=== PATIENT | female | born 2000 | race Hispanic/Latino ===

== ENCOUNTER 2019-09-12 21:31 | Emergency (ER) | payer OTHER ==
[~2019-09-12] VITALS: Ht 152.4 cm; Wt 50.3 kg
--- OUTSIDE RECORDS SUMMARY | 2019-09-12 21:36 | XMS REPORT ---
Author Author [facility] t Organization [facility] Address [address] [place] [address] Phone Unavailable Care Team Providers Care Kaiwhakahaere Name Role Phone Unavailable Unavailable Payers Payer Name Policy Type Policy Number Effective Date Expiration Date S ource Problems This patient has no known problems. Allergies, Adverse Reactions, Alerts Allergy Name Allergy Type Status Severity Reaction(s) Onset Date Inacti ve Date Treating Clinician Comments Source Penicillins DA Active SV 2019-09-01 00:00:00 [facility] codeine DA Active SV 2019-09-01 00:00:00 [facility] Penicillins DA Active SV 2014-11-21 00:00:00 [facility] codeine DA Active SV 2014-11-21 00:00:00 [facility] Medications This patient has no known medications. Procedures This patient has no known procedures. Results Test Description Test Time Test Comments Results Result Comments Source - DUP AB/PEL/SC/LTD 2019-09-09 23:44:00 Name: TIANA ALMENDAREZ [facility] : 2000 Age/S: 19 / F [address] [place] [address] Unit #: [id number] Loc: FAUSTINO Perez [address] Phys: Britton Canada PREMIUM REPRESENTATIVE Acct: [id number] Dis Date: Status: REG ER PHONE #: [phone] Exam Date: 09/09/2019 2330 FAX #: [phone] Reason: see US PREG 1st TRIMTR EXAMS: CPT CODE: [id number] DUP AB/PEL/SC/LTD 04623 EXAM: US, US PREG 1ST TRIMTR: 09/09/2019, 2256 hours EXAM: US, US PREG UT TRANSVAGINAL: 09/09/2019, 2256 hours EXAM: US, DUP AB/PEL/SCLTD: 09/09/2019, 2256 hours History: Vaginal bleeding. Vomiting. Nausea. Abdominal pain. 10 weeks . TECHNIQUE: Transabdominal and transvaginal sonographic evaluation is performed using grayscale, color flow and Doppler imaging as appropriate COMPARISON: 09/01/2019 Findings: Transabdominal ultrasound: Anteverted uterus. Uterus measures 8.1 x 6.0 x 8.3 cm. An intrauterine gestational sac is seen containing pole and yolk sac. Sonographic gestational age is 10 weeks 2 days by CRL measurement of 3.41 cm heart rate is 1 62 bpm. Right ovary: 2.4 x 1.8 x 2.2 cm Left ovary: 3.1 x 1.2 x 1.8 cm Normal flow seen to the both ovaries. No adnexal mass noted. Transvaginal pelvic ultrasound: Uterus is anteverted. Uterus measures 8.7 x 7.0 x 7.9 cm. An intrauterine gestational sac is noted containing pole and yolk sac. Sonographic gestational age is 10 weeks 2 days by CRL measurement of 3.38 cm heart rate is 1 67 bpm. A small subchorionic bleed is seen measuring 1.5 x 0.9 x 0.3 cm. Right ovary: 2.5 x 1.8 x 2.5 cm Left ovary: 2.1 x 1.1 x 2.4 cm A 1.7 x 1.4 x 1.9 cm heterogenous area in the right ovary, probably corpus luteum cyst. Follicle seen in the left ovary. Normal flow seen to the both ovaries. Trace free fluid seen in the pelvis. If indicated, follow-up ultrasound can be obtained for complete PAGE 1 Signed Report (CONTINUED) Name: TIANA ALMENDAREZ : 2000 Age/S: 19 / F [address] [place] [address] Unit #: [id number] Loc: FAUSTINO Perez [address] Phys: Britton Canada PREMIUM REPRESENTATIVE Acct: [id number] Dis Date: Status: REG ER PHONE #: [phone] Exam Date: 09/09/20192329 FAX #: [phone] Reason: see US PREG 1st TRIMTR EXAMS: CPT CODE: [id number] [facility] AB/PEL/SC/LTD 88137 < Continued> assessment. IMPRESSION: 1. Single viable intrauterine gestation with sonographic estimated gestational age of 10 weeks 2 days. 2. Subchorionic bleed. 3. A heterogenous lesion in the right ovary, probably corpus luteum cyst. 4. Trace free fluid in the pelvis. SL:[JSYED-H] at 2344 Reported and signed by: Payam Allred M.D. CC: Britton Canada NP Technologist: Dori Carson RDMS(AB)(OB) Trnscb Date/Time: 09/09/2019 (2344) [email or web address] Orig Print D/T: S: 09/09/2019 (6359) Probe: PAGE 2 Signed Report - US PREG 1ST TRIMTR 2019-09-09 23:44:00 Name: TIANA ALMENDAREZ : 2000 Age/S: 19 / F [address] [place] [address] Unit #: [id number] Loc: FAUSTINO Perez [address] Phys: Britton Canada PREMIUM REPRESENTATIVE Acct: [id number] Dis Date: Status: REG ER PHONE #: [phone] Exam Date: 09/09/20192329 FAX #: [phone] Reason: 10wk ges, veg bleeding EXAMS: CPT CODE: [id number] US PREG 1ST TRIMTR 32918 EXAM: US, US PREG 1ST TRIMTR: 09/09/2019, 2256 hours EXAM: US, US PREG UT TRANSVAGINAL: 09/09/2019, 2256 hours EXAM: US, DUP AB/PEL/SCLTD: 09/09/2019, 2256 hours History: Vaginal bleeding. Vomiting. Nausea. Abdominal pain. 10 weeks . TECHNIQUE: Transabdominal and transvaginal sonographic evaluation is performed using grayscale, color flow and Doppler imaging as appropriate COMPARISON: 09/01/2019 Findings: Transabdominal ultrasound: Anteverted uterus. Uterus measures 8.1 x 6.0 x 8.3 cm. An intrauterine gestational sac is seen containing pole and yolk sac. Sonographic gestational age is 10 weeks 2 days by CRL measurement of 3.41 cm heart rate is 1 62 bpm. Right ovary: 2.4 x 1.8 x 2.2 cm Left ovary: 3.1 x 1.2 x 1.8 cm Normal flow seen to the both ovaries. No adnexal mass noted. Transvaginal pelvic ultrasound: Uterus is anteverted. Uterus measures 8.7 x 7.0 x 7.9 cm. An intrauterine gestational sac is noted containing pole and yolk sac. Sonographic gestational age is 10 weeks 2 days by CRL measurement of 3.38 cm heart rate is 1 67 bpm. A small subchorionic bleed is seen measuring 1.5 x 0.9 x 0.3 cm. Right ovary: 2.5 x 1.8 x 2.5 cm Left ovary: 2.1 x 1.1 x 2.4 cm A 1.7 x 1.4 x 1.9 cm heterogenous area in the right ovary, probably corpus luteum cyst. Follicle seen in the left ovary. Normal flow seen to the both ovaries. Trace free fluid seen in the pelvis. If indicated, follow-up ultrasound can be obtained for complete PAGE 1 Signed Report (CONTINUED) Name: TIANA ALMENDAREZ [facility] : 2000 Age/S: 19 / F [address] [place] [address] Unit #: [id number] Loc: FAUSTINO Perez [address] Phys: Britton Canada NP Acct: [id number] Dis Date: Status: REG ER PHONE #: [phone] Exam Date: 09/09/20192329 FAX #: [phone] Rocio son: 10wk ges, veg bleeding EXAMS: CPT CODE: [id number] US PREG 1ST TRIMTR 23451 <Continued> assessment. IMPRESSION: 1. Single viable intrauterine gestation with sonographic estimated gestational age of 10 weeks 2 days. 2. Subchorionic bleed. 3. A heterogenous lesion in the right ovary, probably corpus luteum cyst. 4. Trace free fluid in the pelvis. SL:[JSYED-H] at 2344 Reported and signed by: Payam Allred M.D. CC: Britton Canada NP Technologist: Dori Carson RDMS(AB)(OB) Trnorb Date/Time: 09/09/2019 (234) [email or web address] Orig Print D/T: S: 09/09/2019 (7738) Probe: PAGE 2 Signed Report - US PREG UT TRANSVAGINAL 2019-09-09 23:44:00 Name: TIANA ALMENDAREZ [facility] : 2000 Age/S: 19 / F [address] [place] [address] Unit #: [id number] Loc: [place] [address] Phys: Britton Canada NP Acct: [id number] Dis Date: Status: [facility] ER PHONE #: [phone] Exam Date: 09/09/20192329 FAX #: [phone] Reason: see US PREG 1st TRIMTR EXAMS: CPT CODE: [id number] US PREG UT TRANSVAGINAL 45432 EXAM: US, US PREG 1ST TRIMTR: 09/09/2019, 2256 hours EXAM: US, US PREG UT TRANSVAGINAL: 09/09/2019, 2256 hours EXAM: US, DUP AB/PEL/SCLTD: 09/09/2019, 2256 hours History: Vaginal bleeding. Vomiting. Nausea. Abdominal pain. 10 weeks . TECHNIQUE: Transabdominal and transvaginal sonographic evaluation is performed using grayscale, color flow and Doppler imaging as appropriate COMPARISON: 09/01/2019 Findings: Transabdominal ultrasound: Anteverted uterus. Uterus measures 8.1 x 6.0 x 8.3 cm. An intrauterine gestational sac is seen containing pole and yolk sac. Sonographic gestational age is 10 weeks 2 days by CRL measurement of 3.41 cm heart rate is 1 62 bpm. Right ovary: 2.4 x 1.8 x 2.2 cm Left ovary: 3.1 x 1.2 x 1.8 cm Normal flow seen to the both ovaries. No adnexal mass noted. Transvaginal pelvic ultrasound: Uterus is anteverted. Uterus measures 8.7 x 7.0 x 7.9 cm. An intrauterine gestational sac is noted containing pole and yolk sac. Sonographic gestational age is 10 weeks 2 days by CRL measurement of 3.38 cm heart rate is 1 67 bpm. A small subchorionic bleed is seen measuring 1.5 x 0.9 x 0.3 cm. Right ovary: 2.5 x 1.8 x 2.5 cm Left ovary: 2.1 x 1.1 x 2.4 cm A 1.7 x 1.4 x 1.9 cm heterogenous area in the right ovary, probably corpus luteum cyst. Follicle seen in the left ovary. Normal flow seen to the both ovaries. Trace free fluid seen in the pelvis. If indicated, follow-up ultrasound can be obtained for complete PAGE 1 Signed Report (CONTINUED) Name: TIANA ALMENDAREZ [facility] : 2000 Age/S: 19 / F [address] [place] [address] Unit #: [id number] Loc: [place] [address] Phys: Britton Canada PREMIUM REPRESENTATIVE Acct: [id number] Dis Date: Status: REG ER PHONE #: [phone] Exam Date: 09/09/2019 2330 FAX #: [phone] Mccall son: see US PREG 1st TRIMTR EXAMS: CPT CODE: [id number] US PREG UT TRANSVAGINAL 15199 <Continued> assessment. IMPRESSION: 1. Single viable intrauterine gestation with sonographic estimated gestational age of 10 weeks 2 days. 2. Subchorionic bleed. 3. A heterogenous lesion in the right ovary, probably corpus luteum cyst. 4. Trace free fluid in the pelvis. SL:[JSYED-H] at 2344 Reported and signed by: Payam Allred M.D. CC: Britton Canada NP Technologist: oDri Carson RDMS()(OB) Trnscb Date/Time: 09/09/2019 (2344) [email or web address] Orig Print D/T: S: 09/09/2019 (7303) Probe: [id number] PAGE 2 Signed Report BASIC METABOLIC PANEL 2019-09-09 23:17:00 Test Item SODIUM (test code = NA) 136 mEq/L 134-147 N POTASSIUM (test code = K) 3.4 mEq/L 3.4-5.0 N CHLORIDE (test code = CL) 106 mEq/L 100-108 N CARBON DIOXIDE (test code = CO2) 20 mEq/L 21-33 L ANION GAP (test code = GAP) 13 0-20 N GLUCOSE (test code = GLU) 105 mg/dL 70-110 N BLOOD UREA NITROGEN (test code = BUN) 6 mg/dL 7-18 L GLOMERULAR FILTRATION RATE (test code = GFR) 155.7 110-120 H Units of measure = ml/min/1.73 m2 CREATININE (test code = CREAT) 0.5 mg/dL 0.6-1.3 L CALCIUM (test code = CA) 8.8 mg/dL 8.0-10.5 N Is patient ? YHOW MANY WEEKS? 10 WEEKSHEPATIC FUNCTION [id number] 23:17:00* Test Item Value Reference Range Interpretation Comments TOTAL PROTEIN (test code = PROT) 7.2 g/dL 6.4-8.2 N ALBUMIN (test code = ALB) 3.40 g/dL 3.4-5.0 N BILIRUBIN TOTAL (test code = BILT) 0.2 MG/DL <1.5 N BILIRUBIN DIRECT (test code = BILD) < 0.10 MG/DL 0.0-0.30 N BILIRUBIN INDIRECT (test code = BILIND) 0.10 MG/DL SGOT/AST (test code = AST) 14 IUnit/L 15-37 L SGPT/ALT (test code = ALT) 20 IUnit/L 15-65 N ALKALINE PHOSPHATASE TOTAL (test code = ALKP) 46 IUnit/L 20-125 N Is patient ? YHOW MANY WEEKS? 10 [id number] 23:17:00* Test Item Value Reference Range Interpretation Comments LIPASE (test code = LIP) 107 IUnit/L 73-393 N Is patient ? YHOW MANY WEEKS? 10 WEEKSHCG [id number] 23:17:00* Test Item Value Reference Range Interpretation Comments HCG SERUM (test code = HCG) 83593 0 - 6 NOT > 6 SUGGESTIVE OF EARLY RISES TWO FOLD EVERY 2 DAYS; SUGGEST RE CONFIRMING AFTER 2 DAYS. 150,000-200,[address] TRIMESTER 10,000 - 50,000 2ND & 3RD TRIMESTERResults in marjorie-International Units/mL Is patient ? YHOW MANY WEEKS? 10 BASIC METABOLIC [id number] 23:04:00* Test Item Value Reference Range Interpretation Comments SODIUM (test code = NA) 136 mEq/L 134-147 N POTASSIUM (test code = K) 3.4 mEq/L 3.4-5.0 N CHLORIDE (test code = CL) 106 mEq/L 100-108 N CARBON DIOXIDE (test code = CO2) 20 mEq/L 21-33 L ANION GAP (test code = GAP) 13 0-20 N GLUCOSE (test code = GLU) 105 mg/dL 70-110 N BLOOD UREA NITROGEN (test code = BUN) 6 mg/dL 7-18 L GLOMERULAR FILTRATION RATE (test code = GFR) 110-120 CREATININE (test code = CREAT) mg/dL 0.6-1.3 CALCIUM (test code = CA) 8.8 mg/dL 8.0-10.5 N Is patient ? YHOW MANY WEEKS? 10 HEPATIC FUNCTION [id number] 23:04:00* Test Item Value Reference Range Interpretation Comments TOTAL PROTEIN (test code = PROT) g/dL 6.4-8.2 ALBUMIN (test code = ALB) g/dL 3.4-5.0 BILIRUBIN TOTAL (test code = BILT) MG/DL <1.5 BILIRUBIN DIRECT (test code = BILD) MG/DL 0.0-0.30 SGOT/AST (test code = AST) IUnit/L 15-37 SGPT/ALT (test code = ALT) IUnit/L 15-65 ALKALINE PHOSPHATASE TOTAL (test code = ALKP) IUnit/L 20-125 Is patient ? YHOW MANY WEEKS? 10 [id number] 23:04:00* Test Item Value Reference Range Interpretation Comments LIPASE (test code = LIP) 107 IUnit/L 73-393 N Is patient ? YHOW MANY WEEKS? 10 WEEKSHCG [id number] 23:04:00* Test Item Value Reference Range Interpretation Comments HCG SERUM (test code = HCG) Is patient ? YHOW MANY WEEKS? 10 WEEKSCBC W/AUTO [id number] 22:45:00 * Test Item Value Reference Range Interpretation Comments WHITE BLOOD CELL (test code = WBC) 8.92 x10 3/uL 4.5-11.0 N RED BLOOD CELL (test code = RBC) 4.25 x10 6/uL 3.54-5.02 N HEMOGLOBIN (test code = HGB) 11.6 g/dL 11.0-15.0 N HEMATOCRIT (test code = HCT) 34.7 % 33.0-45.0 N MEAN CELL VOLUME (test code = MCV) 81.6 fL 81.0-99.0 N MEAN CELL HGB (test code = MCH) 27.3 pg 27.0-33.0 N MEAN CELL HGB CONCETRATION (test code = MCHC) 33.4 g/dL 33.0-37. 0 N RED CELL DISTRIBUTION WIDTH CV (test code = RDW) 13.1 % 11.5- 14.5 N RED CELL DISTRIBUTION WIDTH SD (test code = RDW-SD) 38.7 fL 37 .0-54.0 N PLATELET COUNT (test code = PLT) 179 x10 3/uL 150-400 N MEAN PLATELET VOLUME (test code = MPV) 12.3 fL 7.0-9.0 H NEUTROPHIL % (test code = NT%) 67.1 % 56.0-77.0 N IMMATURE GRANULOCYTE % (test code = IG%) 0.3 % 0.0-2.0 N LYMPHOCYTE % (test code = LY%) 21.9 % 14.0-32.0 N MONOCYTE % (test code = MO%) 8.0 % 4.8-9.0 N EOSINOPHIL % (test code = EO%) 1.8 % 0.3-3.7 N BASOPHIL % (test code = BA%) 0.9 % 0.0-2.0 N NUCLEATED RBC % (test code = NRBC%) 0.0 % 0-0 N NEUTROPHIL # (test code = NT#) 5.99 x10 3/uL 2.0-7.6 N IMMATURE GRANULOCYTE # (test code = IG#) 0.03 x10 3/uL 0.00-0.03 N LYMPHOCYTE # (test code = LY#) 1.95 x10 3/uL 1.0-3.8 N MONOCYTE # (test code = MO#) 0.71 x10 3/uL 0.1-0.8 N EOSINOPHIL # (test code = EO#) 0.16 x10 3/uL 0.0-0.2 N BASOPHIL # (test code = BA#) 0.08 x10 3/uL 0.0-0.2 N NUCLEATED RBC # (test code = NRBC#) 0.00 x10 3/uL 0.0-0.1 N MANUAL DIFF REQUIRED (test code = MDIFF) NO CF MUTATION/[id number] 11:09:00* Test Item Value Reference Range Interpretation Comments CF MUTATION/POLYMORPHISMS (test code = CFMUTPOLY) Comment: () RESULTS: Negative for the 97 mutations analyzedINTERPRETATION:This individual is negative for the mutations analyzed.This negative result may need further interpretationdepending on the clinical indication. This result reducesbut does not eliminate the risk to be a CF carrier.COMMENTS:The detection rate varies with ethnicity and is listedbelow. The presence of an undetected mutation in the CFgene cannot be ruled out. In the absence of family history,the remaining risk that a person with a negative resultcould have at least one CF mutation is listed in the table.If there is a family history of CF, these risk figures donot apply. As detailed information regarding thisindividual's family history would permit a more accurateassessment of this individual's risk to be a carrier ofcystic fibrosis, please contact [employer] [phone] for a revised report.Mutation Detection Detection rates are based on mutationRates among Ethnic frequencies in patients affected withGroups cystic fibrosis. Among individuals with an atypical or mild presentation (e.g. congenital absence of the vas deferens, pancreatitis) detection rates may vary from those provided here. Carrier risk reduction when no family DetectionEthnicity history Rate ReferencesAfrican to 81% [employer]ass[employer] in Med 3:168, 2000AmericanAshkenazi 05/18 to 97% Am J Hum Kassi 51:951,1993JewishAsian - Not Insufficient data ProvidedCaucasian 05/17 to 93% K[facility]i in Med 3:168,2000; [employer] in [employer] 4:90, 2001Hispanic to 78% [facility]i in Med 3:168,2000; www.[facility].[place].gov/pcfh/gdb /html/PDE/CFStudy.htmJewish, - Varies by Kassi Testing 5:47, 2000non-Ashkenndi country Kassi Testing, 1:351996 of originOther orMixed - Not Detection rate notEthnicity Provided determined and varies with ethnicityThis interpretation is based on the clinical and familyrelationship information provided and the currentunderstanding of the molecular genetics of this condition.MUTATIONS ANALYZED:knfikT708 1467zkm1 CFTRdele2,3 R334W*ylsopR143* 3659delC* Z1278E R126XddbzjO837* 8193xma6 E60X R347P*1078delT 3791delC E92X W780N2625nntYO 3849+10kbC to T* G178R R553X*1677delTA 3876delA G330X R560T*1717-1G to A* 3905insT G480C V689P7724-3O to A 394delTT G542X* A46P5480+1G to A* 4016insT G551D* Y245W6551+5G to T 405+1G to A G85E* W1901U5305quk11 405+3A to C K710X W9271N1630hhmW 406- 1G to A L206W T2477S6400nij1 to A 444delA I4209T E555N3362ncx61tla0 457TAT to G H0107W* W968W1186gdjJ 574delA P574H S549R T to K2038keuG 621+1G to T* X4385K Y905V1746dzxUI to G 663delT Q359K/T360K W500P9436yyiZ* 711+1G to T* Q493X W9667Y8847uoxZ 711+5G to A Q552X K2407B7299trcP 712-1G to T Q890X D8670R*2789+5G to A* 935delA I9236E E0294N C to S6645gbdP 936delTA E7616O S1299A C to G3120+1G to A* A455E* J4394L* V569T9656I to A A559T B030I4734eifG C524X R117HACOG/ACMG recommendedMETHODS/LIMITATIONS:DNA is isolated from the sample and tested for the 97 CFmutations on the [place] [employer] Platform ([employer]).Regions of the CFTR gene are amplified enzymatically andsubjected to a solution-phase multiplex allele-specificprimer extension with subsequent hybridization to a beadarray and fluorescence detection. Polymorphisms F508C,I506V and I507V are included in this panel to rule outfalse positive mgudbQ745 homozygotes. Reflex testing of5T is included in the panel for R117H interpretation.False positive or negative results may occur for reasonsthat include genetic variants, blood transfusions, bonemarrow transplantation, erroneous representation offamily relationships or contamination of a samplewith maternal cells. The assay provides informationintended to be used for carrier screening in adults ofreproductive age, as an aid in screening, andas a confirmatory test for another medicallyestablished diagnosis in newborns and children. Thetest is not intended for use in diagnostictesting, pre-implantation screening, or for anystand-alone diagnostic purposes without confirmationby another medically established diagnostic productor procedure.Results Released By: Anjali Porter, Ph.D., DirectorReport Released By: Anjali Porter, Ph.D., DirectorPerformed At: [facility] [id number] [place], [place] [id number] Booth MD Ph:[phone] BASIC METABOLIC [id number] 09:19:00* Test Item Value Reference Range Interpretation Comments SODIUM (test code = NA) 137 mEq/L 134-147 N POTASSIUM (test code = K) 3.5 mEq/L 3.4-5.0 N CHLORIDE (test code = CL) 105 mEq/L 100-108 N CARBON DIOXIDE (test code = CO2) 25 mEq/L 21-33 N ANION GAP (test code = GAP) 11 0-20 N GLUCOSE (test code = GLU) 83 mg/dL 70-110 N BLOOD UREA NITROGEN (test code = BUN) 7 mg/dL 7-18 N GLOMERULAR FILTRATION RATE (test code = GFR) 155.7 110-120 H Units of measure = ml/min/1.73 m2 CREATININE (test code = CREAT) 0.5 mg/dL 0.6-1.3 L CALCIUM (test code = CA) 8.6 mg/dL 8.0-10.5 N Is patient ? YHOW MANY WEEKS? 8 [id number] 09:19:00* Test Item Value Reference Range Interpretation Comments LIPASE (test code = LIP) 80 IUnit/L 73-393 N Is patient ? YHOW MANY WEEKS? 8 WEEKSHCG [id number] 09:19:00* Test Item Value Reference Range Interpretation Comments HCG SERUM (test code = HCG) 49863 0 - 6 NOT > 6 SUGGESTIVE OF EARLY RISES TWO FOLD EVERY 2 DAYS; SUGGEST RE CONFIRMING AFTER 2 DAYS. 150,000-200,[address] TRIMESTER 10,000 - 50,000 2ND & 3RD TRIMESTERResults in marjorie-International Units/mL Is patient ? YHOW MANY WEEKS? 8 WEEKSBASIC METABOLIC [id number] 09:08:00* Test Item Value Reference Range Interpretation Comments SODIUM (test code = NA) 137 mEq/L 134-147 N POTASSIUM (test code = K) 3.5 mEq/L 3.4-5.0 N CHLORIDE (test code = CL) 105 mEq/L 100-108 N CARBON DIOXIDE (test code = CO2) 25 mEq/L 21-33 N ANION GAP (test code = GAP) 11 0-20 N GLUCOSE (test code = GLU) 83 mg/dL 70-110 N BLOOD UREA NITROGEN (test code = BUN) 7 mg/dL 7-18 N GLOMERULAR FILTRATION RATE (test code = GFR) 110-120 CREATININE (test code = CREAT) mg/dL 0.6-1.3 CALCIUM (test code = CA) 8.6 mg/dL 8.0-10.5 N Is patient ? YHOW MANY WEEKS? 8 [id number] 09:08:00* Test Item Value Reference Range Interpretation Comments LIPASE (test code = LIP) 80 IUnit/L 73-393 N Is patient ? YHOW MANY WEEKS? 8 WEEKSHCG [id number] 09:08:00* Test Item Value Reference Range Interpretation Comments HCG SERUM (test code = HCG) Is patient ? YHOW MANY WEEKS? 8 WEEKS- DUP AB/PEL/SC/[id number] 09:07:00 Name: TIANA ALMENDAREZ [facility] : 2000 Age/S: 19 / F [address] [place] [address] Blvd Unit #: [id number] Loc: [place] [address] Phys: Zain Bass MD Acct: [id number] Dis Date: Status: REG ER PHONE #: [phone] Exam Date: 09/01/2019 09 FAX #: [phone] Reason: see US PREG 1st TRIMTR EXAMS: CPT CODE: [id number] DUP AB/PEL/SC/LTD 03137 - US PREG 1ST TRIMTR, - US PREG UT TRANSVAGINAL, - DUP AB/PEL/SC/LTD: 09/01/2019 8:19 AM CLINICAL HISTORY: Vaginal bleeding with .. STUDY: Obstetric ultrasound performed using grayscale, color Doppler, and spectral Doppler technique. Transabdominal and transvaginal imaging was performed. Transvaginal imaging was performed in order to better evaluate the endometrium and adnexal structures. COMPARISON: None. FINDINGS: Uterus measures 9.7 x 5.2 x 6.2 cm. Martinez live intrauterine with cardiac activity detected at a rate of 165-168 bpm. pole crown-rump length measures 2.2 cm, corresponding with an estimated gestational age of 8 weeks, 6 days. Right ovary measures 2.7 x 1.7 x 2.3 cm. Probable corpus luteum cyst. Left ovary measures 2.7 x 1.6 x 1.8 cm. Doppler flow to both ovaries is normal. No free pelvic fluid. IMPRESSION: Martinez live intrauterine with estimated gestational age of 8 weeks, 6 days. at 0907 Reported and signed by: Abdoulaye Daniels M.D. CC: Zain Bass MD Technologist: Valerie Miller RDMS(AB)(OB) Trnscb Date/Time: 09/01/2019 (906) [id number].KM28 Orig Print D/T: S: 09/01/2019 (909) Probe: PAGE 1 Signed Report - US PREG UT [id number] 09:07:00 Name: TIANA ALMENDAREZ [facility] : 2000 Age/S: 19 / F [address] [place], [place] [address]vd Unit #: [id number] Loc: [place] [address] Phys: Zain Bass MD Acct: [id number] Dis Date: Status: REG ER PHONE #: [phone] Exam Date: 09/01/2019899 FAX #: [phone] Reason: see US PREG 1st TRIMTR EXAMS: CPT CODE: [id number] US PREG UT TRANSVAGINAL 12098 - US PREG 1ST TRIMTR, - US PREG UT TRANSVAGINAL, - DUP AB/PEL/SC/LTD: 09/01/2019 8:19 AM CLINICAL HISTORY: Vaginal bleeding with .. STUDY: Obstetric ultrasound performed using grayscale, color Doppler, and spectral Doppler technique. Transabdominal and transvaginal imaging was performed. Transvaginal imaging was performed in order to better evaluate the endometrium and adnexal structures. COMPARISON: None. FINDINGS: Uterus measures 9.7 x 5.2 x 6.2 cm. Martinez live intrauterine with cardiac activity detected at a rate of 165-168 bpm. pole crown-rump length measures 2.2 cm, corresponding with an estimated gestational age of 8 weeks, 6 days. Right ovary measures 2.7 x 1.7 x 2.3 cm. Probable corpus luteum cyst. Left ovary measures 2.7 x 1.6 x 1.8 cm. Doppler flow to both ovaries is normal. No free pelvic fluid. IMPRESSION: Martinez live intrauterine with estimated gestational age of 8 weeks, 6 days. at 0907 Reported and signed by: Abdoulaye Daniels M.D. CC: Zain ann MD Technologist: JOSE D Chapa S(AB)(OB) Trnscb Date/Time: 09/01/2019 (906) EfraKM 28 Orig Print D/T: S: 09/01/2019 (909) Probe: [id number] X3 PAGE 1 Signed Report - US PREG 1ST [id number] 09:07:00 Name: TIANA ALMENDAREZ [facility] : 2000 Age/S: 19 / F [address] [place] [address] Unit #: [id number] Loc: [place] [address] Phys: Zain Bass MD Acct: [id number] Dis Date: Status: REG ER PHONE #: [phone] Exam Date: 09/01/2019899 FAX #: [phone] Reason: Pelvic Pain EXAMS: CPT CODE: [id number] US PREG 1ST TRIMTR 50532 - US PREG 1ST TRIMTR, - US PREG UT TRANSVAGINAL, - DUP AB/PEL/SC/LTD: 09/01/2019 8:19 AM CLINICAL HISTORY: Vaginal bleeding with .. STUDY: Obstetric ultrasound performed using grayscale, color Doppler, and spectral Doppler technique. Transabdominal and transvaginal imaging was performed. Transvaginal imaging was performed in order to better evaluate the endometrium and adnexal structures. COMPARISON: None. FINDINGS: Uterus measures 9.7 x 5.2 x 6.2 cm. Martinez live intrauterine with cardiac activity detected at a rate of 165-168 bpm. pole crown-rump length measures 2.2 cm, corresponding with an estimated gestational age of 8 weeks, 6 days. Right ovary measures 2.7 x 1.7 x 2.3 cm. Probable corpus luteum cyst. Left ovary measures 2.7 x 1.6 x 1.8 cm. Doppler flow to both ovaries is normal. No free pelvic fluid. IMPRESSION: Martinez live intrauterine with estimated gestational age of 8 weeks, 6 days. at 0907 Reported and signed by: Abdoulaye Daniels M.D. CC: Zain ann MD Technologist: JOSE D Chapa S(AB)(OB) Trnscb Date/Time: 09/01/2019 (09) [email or web address] 28 Orig Print D/T: S: 09/01/2019 (0913) Probe: PAGE 1 Signed Report CBC W/AUTO [id number] 09:01:00* Test Item Value Reference Range Interpretation Comments WHITE BLOOD CELL (test code = WBC) 7.74 x10 3/uL 4.5-11.0 N RED BLOOD CELL (test code = RBC) 4.47 x10 6/uL 3.54-5.02 N HEMOGLOBIN (test code = HGB) 12.3 g/dL 11.0-15.0 N HEMATOCRIT (test code = HCT) 37.0 % 33.0-45.0 N MEAN CELL VOLUME (test code = MCV) 82.8 fL 81.0-99.0 N MEAN CELL HGB (test code = MCH) 27.5 pg 27.0-33.0 N MEAN CELL HGB CONCETRATION (test code = MCHC) 33.2 g/dL 33.0-37. 0 N RED CELL DISTRIBUTION WIDTH CV (test code = RDW) 13.2 % 11.5- 14.5 N RED CELL DISTRIBUTION WIDTH SD (test code = RDW-SD) 39.8 fL 37 .0-54.0 N PLATELET COUNT (test code = PLT) 174 x10 3/uL 150-400 N MEAN PLATELET VOLUME (test code = MPV) 11.9 fL 7.0-9.0 H NEUTROPHIL % (test code = NT%) 59.9 % 56.0-77.0 N IMMATURE GRANULOCYTE % (test code = IG%) 0.4 % 0.0-2.0 N LYMPHOCYTE % (test code = LY%) 28.2 % 14.0-32.0 N MONOCYTE % (test code = MO%) 8.1 % 4.8-9.0 N EOSINOPHIL % (test code = EO%) 2.5 % 0.3-3.7 N BASOPHIL % (test code = BA%) 0.9 % 0.0-2.0 N NUCLEATED RBC % (test code = NRBC%) 0.0 % 0-0 N NEUTROPHIL # (test code = NT#) 4.64 x10 3/uL 2.0-7.6 N IMMATURE GRANULOCYTE # (test code = IG#) 0.03 x10 3/uL 0.00-0.03 N LYMPHOCYTE # (test code = LY#) 2.18 x10 3/uL 1.0-3.8 N MONOCYTE # (test code = MO#) 0.63 x10 3/uL 0.1-0.8 N EOSINOPHIL # (test code = EO#) 0.19 x10 3/uL 0.0-0.2 N BASOPHIL # (test code = BA#) 0.07 x10 3/uL 0.0-0.2 N NUCLEATED RBC # (test code = NRBC#) 0.00 x10 3/uL 0.0-0.1 N MANUAL DIFF REQUIRED (test code = MDIFF) NO UA RFLX MICR CULT IF [id number] 08:58:00* Test Item Value Reference Range Interpretation Comments UA COLOR (test code = COLU) YELLOW YEL/STRAW UA APPEARANCE (test code = APPU) CLOUDY CLEAR A UA GLUCOSE DIPSTICK (test code = DGLUU) NEGATIVE NEGATIVE UA BILIRUBIN DIPSTICK (test code = BILU) NEGATIVE NEGATIVE UA KETONE DIPSTICK (test code = KETU) NEGATIVE NEGATIVE UA SPECIFIC GRAVITY (test code = SGU) 1.025 1.005-1.030 N UA BLOOD DIPSTICK (test code = YOVANI) 2+ NEGATIVE A UA PH DIPSTICK (test code = JOSE E) 5.0 5.0-7.0 N UA PROTEIN DIPSTICK (test code = PROU) NEGATIVE NEGATIVE UA UROBILINIOGEN DIPSTICK (test code = URO) 0.2 mg/dL 0.2-1.0 UA NITRITE DIPSTICK (test code = XIOMARA) NEGATIVE NEGATIVE UA LEUKOCYTE ESTERASE DIPSTICK (test code = LEUU) 2+ NEGA TIVE A UA WBC (test code = WBCU) 10-20 WBC/HPF 0-3 A UA RBC (test code = RBCU) 4-10 RBC/HPF 0-3 UA WBC NO REFLEX (test code = WBCUCL) 10-20 WBC/HPF 0-3 A UA BACTERIA (test code = BACU) TRACE /HPF NONE SEEN UA SQUAMOUS CELLS (test code = SQU) 11-25 /HPF NONE SEEN A UA MUCUS (test code = MUCU) 4+ /LPF NONE SEEN A Indication for culture: Sev. Sepsis-no other src Suprapubic PainSpecimen Description: CLEAN CATCHAB HEPATITIS [id number] 08:10:00* Test Item Value Reference Range Interpretation Comments AB HEPATITIS C (test code = HCVAB) <0.1 0.0-0.9 INFCE Result Units: s/co ratio Negative: < 0.8 Indeterminate: 0.8 - 0.9 Positive: > 0.9 The CDC recommends that a positive HCV antibody result be followed up with a HCV Nucleic Acid Amplification test ([id number]).Performed At: [facility] [id number] Holger Sullivan MD Ph:[phone] AB [id number] 21:23:00* Test Item Value Reference Range Interpretation Comments AB TREPONEMA (test code = TREPAB) Nonreactive Index NonReactive AG HEPAT B [id number] 21:22:00* Test Item Value Reference Range Interpretation Comments AG HEPAT B SURF (test code = HBSAG) Nonreactive Index Nonreactive AB RUBELLA [id number] 21:22:00* Test Item Value Reference Range Interpretation Comments AB RUBELLA IGG (test code = RUBGAB) Positive IUnit/mL <5.0=Neg IU/ML INTERPRETATION OF SERUM RUBELLA-IGG AB --------- < 5.0 NEGATIVE - NO RUBELLA IGG ANTIBODY DETECTED5.0-9.9 EQUIVOCAL>= 10.0 POSITIVE - RUBELLA IGG ANTIBODY DETECTED HIV 1 2 COMBO AG/AB [id number] 21:22:00* Test Item Value Reference Range Interpretation Comments HIV 1 2 COMBO AG/AB SCREEN (test code = [id number]) AB/AG NO N REACTIVE NONREACTIVE NONREACTIVE HIV P24 ANTI GEN NONREACTIVE NONREACTIVE HIV 1&2 ANTIBODY NONREACTIVE THE HIV-1 P24 TEST HELPS DISTINGUISH ACUTE HIV-1INFECTIONFROM ESTABLISHED HIV-1 INFECTION WHEN THE SPECIMEN ISPOSITIVE FOR HIV-1 P24 ANTIGEN. HIV-1 P24 ANTIGEN IS HIGHEST IN THE FIRST FEW WEEKS AFTERINFECTION DRUGS OF ABUSE SCREEN [id number] 20:56:00* Test Item Value Reference Range Interpretation Comments URN COCAINE (test code = COCAURN) NEGATIVE <300 ng/mL URN CANNABINOIDS (test code = CANNABURN) NEGATIVE <50 ng/mL URN AMPHETAMINE (test code = AMPHETURN) NEGATIVE <1000 ng/mL URN BARBITURATE (test code = BARBITURN) NEGATIVE <200 ng/mL URN BENZODIAZEPINE (test code = BENZOURN) NEGATIVE <200 ng/mL URN OPIATES (test code = OPIATURN) NEGATIVE <300 ng/mL URN PHENCYCLIDINE (PCP) (test code = PHENCURN) NEGATIVE <25 ng/ mL GESTATION SCREEN [id number] 20:29:00* Test Item Value Reference Range Interpretation Comments GESTATION SCREEN GLUCOSE (test code = GLU1S) 91 mg/mL 90-140 N AG HEPAT B [id number] 19:28:00* Test Item Value Reference Range Interpretation Comments AG HEPAT B SURF (test code = HBSAG) Index Nonreactive AB RUBELLA [id number] 19:28:00* Test Item Value Reference Range Interpretation Comments AB RUBELLA IGG (test code = RUBGAB) IUnit/mL <5.0=Neg HIV 1 2 COMBO AG/AB [id number] 19:28:00* Test Item Value Reference Range Interpretation Comments HIV 1 2 COMBO AG/AB SCREEN (test code = [id number]) AB/AG NO N REACTIVE NONREACTIVE NONREACTIVE HIV P24 ANTI GEN NONREACTIVE NONREACTIVE HIV 1&2 ANTIBODY NONREACTIVE THE HIV-1 P24 TEST HELPS DISTINGUISH ACUTE HIV-1INFECTIONFROM ESTABLISHED HIV-1 INFECTION WHEN THE SPECIMEN ISPOSITIVE FOR HIV-1 P24 ANTIGEN. HIV-1 P24 ANTIGEN IS HIGHEST IN THE FIRST FEW WEEKS AFTERINFECTION CBC W/AUTO [id number] 19:20:00* Test Item Value Reference Range Interpretation Comments WHITE BLOOD CELL (test code = WBC) 8.8 K/mm3 4.5-12.5 N RED BLOOD CELL (test code = RBC) 4.63 mill/mm3 3.7-5.2 N HEMOGLOBIN (test code = HGB) 12.5 gram/dL 11.5-15.5 N HEMATOCRIT (test code = HCT) 38.5 % 36.0-46.0 N MEAN CELL VOLUME (test code = MCV) 83.2 fL 80-98 N MEAN CELL HGB (test code = MCH) 27.0 picogram 27.0-33.0 N MEAN CELL HGB CONCETRATION (test code = MCHC) 32.5 gram/dL 33.0-36. 0 L RED CELL DISTRIBUTION WIDTH (test code = RDW) 13.4 % 11.6-16. 2 N PLATELET COUNT (test code = PLT) 182 K/mm3 150-450 N MEAN PLATELET VOLUME (test code = MPV) 12.6 fL 6.7-11.0 H NEUTROPHIL % (test code = NT%) 74.6 % 39.0-69.0 H LYMPHOCYTE % (test code = LY%) 17.2 % 25.0-55.0 L MONOCYTE % (test code = MO%) 6.6 % 0.0-10.0 N EOSINOPHIL % (test code = EO%) 0.8 % 0.0-5.0 N BASOPHIL % (test code = BA%) 0.6 % 0.0-1.0 N NEUTROPHIL # (test code = NT#) 6.53 K/mm3 1.8-7.7 N LYMPHOCYTE # (test code = LY#) 1.51 K/mm3 1.0-5.0 N MONOCYTE # (test code = MO#) 0.58 K/mm3 0-0.8 N EOSINOPHIL # (test code = EO#) 0.07 K/mm3 0.0-0.5 N BASOPHIL # (test code = BA#) 0.05 K/mm3 0.0-0.2 N MANUAL DIFF REQUIRED (test code = MDIFF) NO CBC W/AUTO [id number] 19:18:00* Test Item Value Reference Range Interpretation Comments WHITE BLOOD CELL (test code = WBC) K/mm3 4.5-12.5 RED BLOOD CELL (test code = RBC) mill/mm3 3.7-5.2 HEMOGLOBIN (test code = HGB) 12.5 gram/dL 11.5-15.5 N HEMATOCRIT (test code = HCT) 38.5 % 36.0-46.0 N MEAN CELL VOLUME (test code = MCV) fL 80-98 MEAN CELL HGB (test code = MCH) picogram 27.0-33.0 MEAN CELL HGB CONCETRATION (test code = MCHC) gram/dL 33.0-36. 0 RED CELL DISTRIBUTION WIDTH (test code = RDW) % 11.6-16. 2 PLATELET COUNT (test code = PLT) K/mm3 150-450 MEAN PLATELET VOLUME (test code = MPV) fL 6.7-11.0 NEUTROPHIL % (test code = NT%) % 39.0-69.0 LYMPHOCYTE % (test code = LY%) % 25.0-55.0 MONOCYTE % (test code = MO%) % 0.0-10.0 EOSINOPHIL % (test code = EO%) % 0.0-5.0 BASOPHIL % (test code = BA%) % 0.0-1.0 NEUTROPHIL # (test code = NT#) K/mm3 1.8-7.7 LYMPHOCYTE # (test code = LY#) K/mm3 1.0-5.0 MONOCYTE # (test code = MO#) K/mm3 0-0.8 EOSINOPHIL # (test code = EO#) K/mm3 0.0-0.5 BASOPHIL # (test code = BA#) K/mm3 0.0-0.2 URINALYSIS [id number] 16:08:00* Test Item Value Reference Range Interpretation Comments UA GLUCOSE DIPSTIC POC (test code = GLUUP) Negative Negative UA KETONE DIPSTICK POC (test code = KETUP) Negative UA BLOOD DIPSTIC POC (test code = BLUP) NEGATIVE UA PH DIPSTIC POC (test code = PHUP) 5-8 UA PROTEIN DIPSTICK POC (test code = DPROUP) Neg -15 UA NITRITE DIPSTICK POC (test code = NITUP) Negative UA LEUKOCYTE ESTERASE POC (test code = LEUUPOC) NEGATI VE UA GLU: NEGATIVEKET UA NEGATIVEPH UA 6.0UA NIT NegativePROT UA 15 (TRACE)BL UA N EGATIVEUA RON NegativeTime performed: 1400URINALYSIS [id number] 16:08:00 * Test Item Value Reference Range Interpretation Comments UA GLUCOSE DIPSTIC POC (test code = GLUUP) Negative Negative UA KETONE DIPSTICK POC (test code = KETUP) Negative Negative UA BLOOD DIPSTIC POC (test code = BLUP) NEGATIVE UA PH DIPSTIC POC (test code = PHUP) 5-8 UA PROTEIN DIPSTICK POC (test code = DPROUP) Neg -15 UA NITRITE DIPSTICK POC (test code = NITUP) Negative UA LEUKOCYTE ESTERASE POC (test code = LEUUPOC) NEGATI VE UA GLU: NEGATIVEKET UA NEGATIVEPH UA 6.0UA NIT NegativePROT UA 15 (TRACE)BL UA N EGATIVEUA RON NegativeTime performed: 1399URINALYSIS [id number] 16:08:00 * Test Item Value Reference Range Interpretation Comments UA GLUCOSE DIPSTIC POC (test code = GLUUP) Negative Negative UA KETONE DIPSTICK POC (test code = KETUP) Negative Negative UA BLOOD DIPSTIC POC (test code = BLUP) Negative NEGATIVE UA PH DIPSTIC POC (test code = PHUP) 5-8 UA PROTEIN DIPSTICK POC (test code = DPROUP) Neg -15 UA NITRITE DIPSTICK POC (test code = NITUP) Negative UA LEUKOCYTE ESTERASE POC (test code = LEUUPOC) NEGATI VE UA GLU: NEGATIVEKET UA NEGATIVEPH UA 6.0UA NIT NegativePROT UA 15 (TRACE)BL UA N EGATIVEUA RON NegativeTime performed: 1399URINALYSIS [id number] 16:08:00 * Test Item Value Reference Range Interpretation Comments UA GLUCOSE DIPSTIC POC (test code = GLUUP) Negative Negative UA KETONE DIPSTICK POC (test code = KETUP) Negative Negative UA BLOOD DIPSTIC POC (test code = BLUP) Negative NEGATIVE UA PH DIPSTIC POC (test code = PHUP) 6 5-8 N UA PROTEIN DIPSTICK POC (test code = DPROUP) Neg -15 UA NITRITE DIPSTICK POC (test code = NITUP) Negative UA LEUKOCYTE ESTERASE POC (test code = LEUUPOC) NEGATI VE UA GLU: NEGATIVEKET UA NEGATIVEPH UA 6.0UA NIT NegativePROT UA 15 (TRACE)BL UA N EGATIVEUA RON NegativeTime performed: 1399URINALYSIS [id number] 16:08:00 * Test Item Value Reference Range Interpretation Comments UA GLUCOSE DIPSTIC POC (test code = GLUUP) Negative Negative UA KETONE DIPSTICK POC (test code = KETUP) Negative Negative UA BLOOD DIPSTIC POC (test code = BLUP) Negative NEGATIVE UA PH DIPSTIC POC (test code = PHUP) 6 5-8 N UA PROTEIN DIPSTICK POC (test code = DPROUP) 15 (Trace) Neg -15 A UA NITRITE DIPSTICK POC (test code = NITUP) Negative UA LEUKOCYTE ESTERASE POC (test code = LEUUPOC) NEGATI VE UA GLU: NEGATIVEKET UA NEGATIVEPH UA 6.0UA NIT NegativePROT UA 15 (TRACE)BL UA N EGATIVEUA RON NegativeTime performed: 1399URINALYSIS [id number] 16:08:00 * Test Item Value Reference Range Interpretation Comments UA GLUCOSE DIPSTIC POC (test code = GLUUP) Negative Negative UA KETONE DIPSTICK POC (test code = KETUP) Negative Negative UA BLOOD DIPSTIC POC (test code = BLUP) Negative NEGATIVE UA PH DIPSTIC POC (test code = PHUP) 6 5-8 N UA PROTEIN DIPSTICK POC (test code = DPROUP) 15 (Trace) Neg -15 A UA NITRITE DIPSTICK POC (test code = NITUP) Negative Negative UA LEUKOCYTE ESTERASE POC (test code = LEUUPOC) NEGATI VE UA GLU: NEGATIVEKET UA NEGATIVEPH UA 6.0UA NIT NegativePROT UA 15 (TRACE)BL UA N EGATIVEUA RON NegativeTime performed: 1399URINALYSIS [id number] 16:08:00 * Test Item Value Reference Range Interpretation Comments UA GLUCOSE DIPSTIC POC (test code = GLUUP) Negative Negative UA KETONE DIPSTICK POC (test code = KETUP) Negative Negative UA BLOOD DIPSTIC POC (test code = BLUP) Negative NEGATIVE UA PH DIPSTIC POC (test code = PHUP) 6 5-8 N UA PROTEIN DIPSTICK POC (test code = DPROUP) 15 (Trace) Neg -15 A UA NITRITE DIPSTICK POC (test code = NITUP) Negative Negative UA LEUKOCYTE ESTERASE POC (test code = LEUUPOC) NEGATIVE NEGATI VE UA GLU: NEGATIVEKET UA NEGATIVEPH UA 6.0UA NIT NegativePROT UA 15 (TRACE)BL UA N EGATIVEUA RON NegativeTime performed: 1399LACTIC [id number] 20:00:00* Test Item Value Reference Range Interpretation Comments LACTIC ACID (test code = LACT) 1.6 MMOL/L 0.4-1.9 N BASIC METABOLIC [id number] 19:51:00* Test Item Value Reference Range Interpretation Comments SODIUM (test code = NA) 136 mmol/L 136-145 N POTASSIUM (test code = K) 3.8 mmol/L 3.5-5.1 N CHLORIDE (test code = CL) 98 mmol/L 101-109 L CARBON DIOXIDE (test code = CO2) 25.4 mmol/L 21-32 N ANION GAP (test code = GAP) 16 mmol/L 10-20 N GLUCOSE (test code = GLU) 86 mg/dL 74-106 N BLOOD UREA NITROGEN (test code = BUN) 14 mg/dL 3-21 N GLOMERULAR FILTRATION RATE (test code = GFR) > 60 mL/min >=60 Estimated GFR by using Modified MDRD formula.Chronic kidney disease is defined as either kidney damageor GFR <60 mL/min/1.73 m2 for >3 months. CREATININE (test code = CREAT) 0.64 mg/dL 0.55-1.3 N BUN/CREATININE RATIO (test code = BUN/CREA) 21.9 10-20 H CALCIUM (test code = CA) 9.3 mg/dL 8.4-10.2 N CBC W/AUTO [id number] 19:43:00* Test Item Value Reference Range Interpretation Comments WHITE BLOOD CELL (test code = WBC) 8.3 K/mm3 4.5-12.5 N RED BLOOD CELL (test code = RBC) 5.07 mill/mm3 3.7-5.2 N HEMOGLOBIN (test code = HGB) 13.3 gram/dL 11.5-15.5 N HEMATOCRIT (test code = HCT) 42.8 % 36.0-46.0 N MEAN CELL VOLUME (test code = MCV) 84.4 fL 80-98 N MEAN CELL HGB (test code = MCH) 26.2 picogram 27.0-33.0 L MEAN CELL HGB CONCETRATION (test code = MCHC) 31.1 gram/dL 33.0-36. 0 L RED CELL DISTRIBUTION WIDTH (test code = RDW) 12.7 % 11.6-16. 2 N RED CELL DISTRIBUTION WIDTH SD (test code = RDW-SD) 39.2 fL 37 .0-51.0 N PLATELET COUNT (test code = PLT) 199 K/mm3 150-450 N MEAN PLATELET VOLUME (test code = MPV) 11.8 fL 6.7-11.0 H NEUTROPHIL % (test code = NT%) 64.5 % 39.0-69.0 N LYMPHOCYTE % (test code = LY%) 24.1 % 25.0-55.0 L MONOCYTE % (test code = MO%) 9.4 % 0.0-10.0 N EOSINOPHIL % (test code = EO%) 1.2 % 0.0-5.0 N BASOPHIL % (test code = BA%) 0.7 % 0.0-1.0 N NEUTROPHIL # (test code = NT#) 5.35 K/mm3 1.8-7.7 N LYMPHOCYTE # (test code = LY#) 2.00 K/mm3 1.0-5.0 N MONOCYTE # (test code = MO#) 0.78 K/mm3 0-0.8 N EOSINOPHIL # (test code = EO#) 0.10 K/mm3 0.0-0.5 N BASOPHIL # (test code = BA#) 0.06 K/mm3 0.0-0.2 N MANUAL DIFF REQUIRED (test code = MDIFF) NO URINALYSIS [id number] 19:20:00* Test Item Value Reference Range Interpretation Comments UA COLOR (test code = COLU) YELLOW YELLOW UA APPEARANCE (test code = APPU) SLIGHT CLOUDY CLEAR A UA GLUCOSE DIPSTICK (test code = DGLUU) norm mg/dL NEGATIVE UA BILIRUBIN DIPSTICK (test code = BILU) NEGATIVE mg/dL NEGATIVE UA KETONE DIPSTICK (test code = KETU) 50 (2+) mg/dL NEGATIVE A UA SPECIFIC GRAVITY (test code = SGU) 1.015 1.001-1.035 UA BLOOD DIPSTICK (test code = YOVANI) 10 (Trace) Shay/uL NEGATIVE A UA PH DIPSTICK (test code = JOSE E) 5.0 5.0-8.0 UA PROTEIN DIPSTICK (test code = PROU) 15 (TRACE) mg/dL Neg-15 A UA UROBILINIOGEN DIPSTICK (test code = URO) norm mg/dL 0.0-0.2 UA NITRITE DIPSTICK (test code = XIOMARA) NEGATIVE NEGATIVE UA LEUKOCYTE ESTERASE DIPSTICK (test code = LEUU) 500 Ron/uL (3+) u L NEGATIVE A UA WBC (test code = WBCU) 11-20 per HPF 0-5 A UA RBC (test code = RBCU) 0-3 per HPF 0-5 UA EPITHELIAL CELLS (test code = EPIU) Few (2-5/hpf) per HPF Few UA BACTERIA (test code = BACU) MANY per HPF NONE A Urine Source? Clean CatchURINALYSIS [id number] 19:16:00* Test Item Value Reference Range Interpretation Comments UA COLOR (test code = COLU) YELLOW YELLOW UA APPEARANCE (test code = APPU) SLIGHT CLOUDY CLEAR A UA GLUCOSE DIPSTICK (test code = DGLUU) norm mg/dL NEGATIVE UA BILIRUBIN DIPSTICK (test code = BILU) NEGATIVE mg/dL NEGATIVE UA KETONE DIPSTICK (test code = KETU) 50 (2+) mg/dL NEGATIVE A UA SPECIFIC GRAVITY (test code = SGU) 1.015 1.001-1.035 UA BLOOD DIPSTICK (test code = YOVANI) 10 (Trace) Shay/uL NEGATIVE A UA PH DIPSTICK (test code = JOSE E) 5.0 5.0-8.0 UA PROTEIN DIPSTICK (test code = PROU) 15 (TRACE) mg/dL Neg-15 A UA UROBILINIOGEN DIPSTICK (test code = URO) norm mg/dL 0.0-0.2 UA NITRITE DIPSTICK (test code = XIOMARA) NEGATIVE NEGATIVE UA LEUKOCYTE ESTERASE DIPSTICK (test code = LEUU) 500 Ron/uL (3+) u L NEGATIVE A UA WBC (test code = WBCU) per HPF 0-5 UA RBC (test code = RBCU) per HPF 0-5 UA EPITHELIAL CELLS (test code = EPIU) per HPF Few UA BACTERIA (test code = BACU) per HPF NONE Urine Source? Clean CatchBASIC METABOLIC [id number] 15:59:00* Test Item Value Reference Range Interpretation Comments SODIUM (test code = NA) 141 mmol/L 136-145 RESU LT VERIFIED BY REPEAT ANALYSIS POTASSIUM (test code = K) 3.8 mmol/L 3.5-5.1 N CHLORIDE (test code = CL) 113.0 mmol/L 98-107 H CARBON DIOXIDE (test code = CO2) 24.0 mmol/L 21-32 N ANION GAP (test code = GAP) 7.8 10-20 L GLUCOSE (test code = GLU) 107 mg/dL 74-106 H BLOOD UREA NITROGEN (test code = BUN) 6 mg/dL 7-18 L GLOMERULAR FILTRATION RATE (test code = GFR) > 60 mL/min >=60 Estimated GFR by using Modified MDRD formula.Chronic kidney disease is defined as either kidney damageor GFR <60 mL/min/1.73 m2 for >3 months. CREATININE (test code = CREAT) 0.50 mg/dL 0.55-1.02 L Note change in reference range due to change in reagent. BUN/CREATININE RATIO (test code = BUN/CREA) 12.0 10-20 N CALCIUM (test code = CA) 8.3 mg/dL 8.5-10.1 L BASIC METABOLIC [id number] 11:04:00* Test Item Value Reference Range Interpretation Comments SODIUM (test code = NA) 135 mmol/L 136-145 L POTASSIUM (test code = K) 4.4 mmol/L 3.5-5.1 N CHLORIDE (test code = CL) 111.0 mmol/L 98-107 H CARBON DIOXIDE (test code = CO2) 17.0 mmol/L 21-32 L ANION GAP (test code = GAP) 11.4 10-20 N GLUCOSE (test code = GLU) 117 mg/dL 74-106 H BLOOD UREA NITROGEN (test code = BUN) 6 mg/dL 7-18 L GLOMERULAR FILTRATION RATE (test code = GFR) > 60 mL/min >=60 Estimated GFR by using Modified MDRD formula.Chronic kidney disease is defined as either kidney damageor GFR <60 mL/min/1.73 m2 for >3 months. CREATININE (test code = CREAT) 0.50 mg/dL 0.55-1.02 L Note change in reference range due to change in reagent. BUN/CREATININE RATIO (test code = BUN/CREA) 11.9 10-20 N CALCIUM (test code = CA) 8.0 mg/dL 8.5-10.1 L STREPTOCOCCUS PCR [id number] 10:54:00* Test Item Value Reference Range Interpretation Comments STREPTOCOCCUS DYSGALACTIAE (test code = STREPGC) POSITIVE FOR G/C N EGATIVE STREPG/C POS CALLED TO [id number] [facility] 06/23/19 1054 STREPA MOLECULAR (test code = STREPAMOL) NEGATIVE FOR GRP A NEGATIV E CBC W/AUTO [id number] 10:06:00* Test Item Value Reference Range Interpretation Comments WHITE BLOOD CELL (test code = WBC) 11.8 K/mm3 4.5-12.5 N RED BLOOD CELL (test code = RBC) 4.52 mill/mm3 3.7-5.2 N HEMOGLOBIN (test code = HGB) 12.4 gram/dL 11.5-15.5 N HEMATOCRIT (test code = HCT) 39.9 % 36.0-46.0 N MEAN CELL VOLUME (test code = MCV) 88.3 fL 80-98 RESULT VERIFIED BY REPEAT ANALYSIS MEAN CELL HGB (test code = MCH) 27.4 picogram 27.0-33.0 N MEAN CELL HGB CONCETRATION (test code = MCHC) 31.1 gram/dL 33.0-36. 0 L RED CELL DISTRIBUTION WIDTH (test code = RDW) 12.9 % 11.6-16. 2 N RED CELL DISTRIBUTION WIDTH SD (test code = RDW-SD) 41.4 fL 37 .0-51.0 N PLATELET COUNT (test code = PLT) 146 K/mm3 150-450 L MEAN PLATELET VOLUME (test code = MPV) 12.7 fL 6.7-11.0 H NEUTROPHIL % (test code = NT%) 88.2 % 39.0-69.0 H IMMATURE GRANULOCYTE % (test code = IG%) 0.3 % 0.0-5.0 N LYMPHOCYTE % (test code = LY%) 7.8 % 25.0-55.0 L MONOCYTE % (test code = MO%) 3.4 % 0.0-10.0 N EOSINOPHIL % (test code = EO%) 0.0 % 0.0-5.0 N BASOPHIL % (test code = BA%) 0.3 % 0.0-1.0 N NUCLEATED RBC % (test code = NRBC%) 0.0 % 0-0 N NEUTROPHIL # (test code = NT#) 10.43 K/mm3 1.8-7.7 H IMMATURE GRANULOCYTE # (test code = IG#) 0.04 x10 3/uL 0-0.03 H LYMPHOCYTE # (test code = LY#) 0.92 K/mm3 1.0-5.0 L MONOCYTE # (test code = MO#) 0.40 K/mm3 0-0.8 N EOSINOPHIL # (test code = EO#) 0.00 K/mm3 0.0-0.5 N BASOPHIL # (test code = BA#) 0.04 K/mm3 0.0-0.2 N NUCLEATED RBC # (test code = NRBC#) 0.00 K/mm3 0.0-0.1 N MANUAL DIFF REQUIRED (test code = MDIFF) NO THYROID STIMULATING [id number] 02:43:00* Test Item Value Reference Range Interpretation Comments THYROID STIMULATING HORMONE (test code = TSH) 0.370 uIU/mL 0.36-3.7 4 N TSH REFERENCE RANGES: EUTHYROID: 0.35 - 4.3 mIU/mL HYPO : > 5.5 mIU/mL HYPER : < 0.35 mIU/mL - XR CHEST 1 [id number] 18:35:00 Name: TIANA ALMENDAREZ [facility] : 2000 Age/S:18 /F [address] [facility] Unit#:[id number] Loc: [place] [address] Phys: Giuliana Lara MD Dis Date: PHONE #: [phone] Status: REG ER FAX #: [phone] Exam Date: 06/22/2019 Reason: CODE SEPSIS EXAMS: CPT CODE: [id number] XR CHEST 1 V [id number] REASON FOR EXAM: CODE SEPSIS EXAM ORDER DATE: 06/22/2019 5:43 PM Ordering: Giuliana Lara MD Attending:Giuliana Lara MD Location: PROCEDURE: - XR CHEST 1 V COMPARISON: FINDINGS: Portable AP frontal view of the chest obtained at 6:14 PM shows clear lungs without evidence of consolidation. There is no evidence of effusion. The heart size is within normal limits. Pulmonary vasculatures are unremarkable. IMPRESSION: No active disease. at 1835 Reported and signed by: Steve Robbins M.D. CC: Erlinda Adair CNM; Giuliana Lara MD Technologist: Lana Kelsey Trnscrpt Data: 06/22/2019 (183) Marilin Orig Print D/T: S: 06/22/2019 (1838) PAGE 1 Signed Report MONO [id number] 18:28:00 * Test Item Value Reference Range Interpretation Comments MONO SCREEN (test code = MONO) NEGATIVE NEGATIVE URINALYSIS [id number] 18:18:00* Test Item Value Reference Range Interpretation Comments UA COLOR (test code = COLU) YELLOW YELLOW UA APPEARANCE (test code = APPU) CLEAR CLEAR UA GLUCOSE DIPSTICK (test code = DGLUU) norm mg/dL NEGATIVE UA BILIRUBIN DIPSTICK (test code = BILU) NEGATIVE mg/dL NEGATIVE UA KETONE DIPSTICK (test code = KETU) neg mg/dL NEGATIVE UA SPECIFIC GRAVITY (test code = SGU) 1.015 1.001-1.035 UA BLOOD DIPSTICK (test code = YOVANI) 10 (Trace) Shay/uL NEGATIVE A UA PH DIPSTICK (test code = JOSE E) 5.0 5.0-8.0 UA PROTEIN DIPSTICK (test code = PROU) neg mg/dL Neg-15 UA UROBILINIOGEN DIPSTICK (test code = URO) norm mg/dL 0.0-0.2 UA NITRITE DIPSTICK (test code = XIOMARA) NEGATIVE NEGATIVE UA LEUKOCYTE ESTERASE DIPSTICK (test code = LEUU) 25 Ron/uL (Tra ce) uL NEGATIVE A UA WBC (test code = WBCU) 0-5 per HPF 0-5 UA RBC (test code = RBCU) 0-1 per HPF 0-5 UA EPITHELIAL CELLS (test code = EPIU) Few (2-5/hpf) per HPF Few UA BACTERIA (test code = BACU) MODERATE per HPF NONE A Urine Source? Clean CatchLACTIC [id number] 18:14:00* Test Item Value Reference Range Interpretation Comments LACTIC ACID (test code = LACT) 1.8 MMOL/L 0.4-1.9 N BASIC METABOLIC [id number] 18:13:00* Test Item Value Reference Range Interpretation Comments SODIUM (test code = NA) 136 mmol/L 136-145 N POTASSIUM (test code = K) 3.7 mmol/L 3.5-5.1 N CHLORIDE (test code = CL) 99 mmol/L 101-109 L CARBON DIOXIDE (test code = CO2) 25.2 mmol/L 21-32 N ANION GAP (test code = GAP) 16 mmol/L 10-20 N GLUCOSE (test code = GLU) 95 mg/dL 74-106 N BLOOD UREA NITROGEN (test code = BUN) 13 mg/dL 3-21 N GLOMERULAR FILTRATION RATE (test code = GFR) > 60 mL/min >=60 Estimated GFR by using Modified MDRD formula.Chronic kidney disease is defined as either kidney damageor GFR <60 mL/min/1.73 m2 for >3 months. CREATININE (test code = CREAT) 0.71 mg/dL 0.55-1.3 N BUN/CREATININE RATIO (test code = BUN/CREA) 18.3 10-20 N CALCIUM (test code = CA) 9.0 mg/dL 8.4-10.2 N HEPATIC FUNCTION [id number] 18:13:00* Test Item Value Reference Range Interpretation Comments TOTAL PROTEIN (test code = PROT) 8.4 g/dL 6.5-8.4 N ALBUMIN (test code = ALB) 4.2 g/dL 3.4-4.8 N GLOBULIN (test code = GLOB) 4.2 G/DL 1-10 N ALBUMIN/GLOBULIN RATIO (test code = A/G) 1.00 RATIO 0.75-1.50 N BILIRUBIN TOTAL (test code = BILT) 0.60 mg/dL 0.0-1.0 N BILIRUBIN DIRECT (test code = BILD) 0.20 mg/dL 0.0-0.30 N SGOT/AST (test code = AST) 20 U/L 6-32 N SGPT/ALT (test code = ALT) 34 U/L 12-78 N N ote: Change in REFERENCE RANGE due to new reagent method. ALKALINE PHOSPHATASE TOTAL (test code = ALKP) 83 U/L 38-126 N [id number] 18:13:00* Test Item Value Reference Range Interpretation Comments TROPONIN-I (test code = TROPI) <0.015 ng/mL 0.00-0.056 N BASIC METABOLIC [id number] 18:04:00* Test Item Value Reference Range Interpretation Comments SODIUM (test code = NA) 136 mmol/L 136-145 N POTASSIUM (test code = K) 3.7 mmol/L 3.5-5.1 N CHLORIDE (test code = CL) 99 mmol/L 101-109 L CARBON DIOXIDE (test code = CO2) 25.2 mmol/L 21-32 N ANION GAP (test code = GAP) 16 mmol/L 10-20 N GLUCOSE (test code = GLU) 95 mg/dL 74-106 N BLOOD UREA NITROGEN (test code = BUN) 13 mg/dL 3-21 N GLOMERULAR FILTRATION RATE (test code = GFR) > 60 mL/min >=60 Estimated GFR by using Modified MDRD formula.Chronic kidney disease is defined as either kidney damageor GFR <60 mL/min/1.73 m2 for >3 months. CREATININE (test code = CREAT) 0.71 mg/dL 0.55-1.3 N BUN/CREATININE RATIO (test code = BUN/CREA) 18.3 10-20 N CALCIUM (test code = CA) 9.0 mg/dL 8.4-10.2 N HEPATIC FUNCTION [id number] 18:04:00* Test Item Value Reference Range Interpretation Comments TOTAL PROTEIN (test code = PROT) gram/dL 6.4-8.2 ALBUMIN (test code = ALB) g/dL 3.4-5.0 GLOBULIN (test code = GLOB) g/dL 2.7-4.2 ALBUMIN/GLOBULIN RATIO (test code = A/G) 0.75-1.50 BILIRUBIN TOTAL (test code = BILT) mg/dL 0.2-1.2 BILIRUBIN DIRECT (test code = BILD) mg/dL 0.0-0.20 SGOT/AST (test code = AST) IUnit/L 15-37 SGPT/ALT (test code = ALT) U/L 10-69 ALKALINE PHOSPHATASE TOTAL (test code = ALKP) IUnit/L 45-117 [id number] 18:04:00* Test Item Value Reference Range Interpretation Comments TROPONIN-I (test code = TROPI) ng/mL 0-0.045 CBC W/AUTO [id number] 17:57:00* Test Item Value Reference Range Interpretation Comments WHITE BLOOD CELL (test code = WBC) 10.7 K/mm3 4.5-12.5 N RED BLOOD CELL (test code = RBC) 5.22 mill/mm3 3.7-5.2 H HEMOGLOBIN (test code = HGB) 13.9 gram/dL 11.5-15.5 N HEMATOCRIT (test code = HCT) 43.0 % 36.0-46.0 N MEAN CELL VOLUME (test code = MCV) 82.4 fL 80-98 N MEAN CELL HGB (test code = MCH) 26.6 picogram 27.0-33.0 L MEAN CELL HGB CONCETRATION (test code = MCHC) 32.3 gram/dL 33.0-36. 0 L RED CELL DISTRIBUTION WIDTH (test code = RDW) 12.4 % 11.6-16. 2 N RED CELL DISTRIBUTION WIDTH SD (test code = RDW-SD) 36.9 fL 37 .0-51.0 L PLATELET COUNT (test code = PLT) 157 K/mm3 150-450 N MEAN PLATELET VOLUME (test code = MPV) 12.0 fL 6.7-11.0 H NEUTROPHIL % (test code = NT%) 82.5 % 39.0-69.0 H LYMPHOCYTE % (test code = LY%) 7.7 % 25.0-55.0 L MONOCYTE % (test code = MO%) 8.6 % 0.0-10.0 N EOSINOPHIL % (test code = EO%) 0.7 % 0.0-5.0 N BASOPHIL % (test code = BA%) 0.4 % 0.0-1.0 N NEUTROPHIL # (test code = NT#) 8.83 K/mm3 1.8-7.7 H LYMPHOCYTE # (test code = LY#) 0.82 K/mm3 1.0-5.0 L MONOCYTE # (test code = MO#) 0.92 K/mm3 0-0.8 H EOSINOPHIL # (test code = EO#) 0.07 K/mm3 0.0-0.5 N BASOPHIL # (test code = BA#) 0.04 K/mm3 0.0-0.2 N MANUAL DIFF REQUIRED (test code = MDIFF) NO
--- NOTE | 2019-09-12 22:02 | Emergency Department Note ---
History of Present Illnes History of Present Illness History of Present Illness This is a 19 year old female presents to the ED for bleeding per vaginal region. Bleeding today. Seen at [facility] with TV US with IUP confirmed. GA 10 weeks. . 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 Any updates have been documented here. Past Medical History Recent Fever: No Clinical Suspicion of Infectio: No Past Medical History: None Past Surgical History: None Social History Smoking Cessation: Never Smoker Alcohol Use: None Any Illegal Drug Use: No Review of Systems Review of Systems Constitutional: no symptoms EENTM: no symptoms Cardiovascular: no symptoms Respiratory: no symptoms Gastrointestinal: no symptoms Genitourinary: other (bleeding per vaginal region) Musculoskeletal: no symptoms Neurological: no symptoms Psychological: no symptoms Endocrine: no symptoms Hematological/Lymphatic: no symptoms Review of other systems All other systems reviewed and negative. Physical Exam Related Data Allergies: Coded Allergies: Penicillins (Verified Allergy, Severe, THROAT SWELLING, 09/12/19) codeine (Verified Allergy, Intermediate, THROAT SWELLING, 09/12/19) Triage Vital Signs Vital Signs Date Time Temp Pulse Resp B/P (MAP) Pulse Ox O2 Delivery O2 Flow Rate FiO2 09/12/19 21:59 98.7 89 16 131/81 99 Vital signs reviewed: Yes Physical Exam CONSTITUTIONAL Constitutional: well-developed, well-nourished HENT HENT: normocephalic, atraumatic, oropharynx clear/moist, nose normal HENT L/R: left ext ear normal, right ext ear normal EYES Eyes: PERRL, conjunctivae normal NECK Neck: ROM normal PULMONARY Pulmonary: effort normal, breath sounds normal CARDIOVASCULAR Cardiovascular: regular rhythm, heart sounds normal, capillary refill normal, normal rate GASTROINTESTINAL Abdominal: soft, nontender, bowel sounds normal GENITOURINARY Genitourinary: exam deferred SKIN Skin: warm, dry MUSCULOSKELETAL Musculoskeletal: ROM normal NEUROLOGICAL Neurological: alert, oriented x 3, no gross motor or sensory deficits PSYCHOLOGICAL Psychological: mood/affect normal, judgement normal Results Imaging Imaging results reviewed: Yes Impressions GA 11 weeks 1 day. Live IUP 151 BPm. 5 cm ovoid structure? possible subchroionic hemorrhage Critical Care Time Subsequent provider I assumed direction of critical care for this patient from another provider of my specialty. Assessment & Plan Assessment & Plan Final Impression: (1) Threatened (2) Subchorionic hematoma in first trimester (3) UTI in Assessment & Plan US report reviewed with patient. US reviewed with radiologist on phone. Plan to discharge to home. Patient to continue abx from [facility]. Depart Disposition: HOME, SELF-CARE KARLEY SMALLWOOD DO September 12, 2019 21:37
[2019-09-12 22:25] LABS: CLARITY,URINE SL CLOUDY (CLEAR); COLOR,URINE YELLOW (YELLOW)
[2019-09-12 22:26] LABS: BILIRUBIN,URINE NEGATIVE (NEGATIVE); KETONES,URINE 1+ (NEGATIVE); LEUKOCYTE ESTERASE ,URINE NEGATIVE (NEGATIVE); NITRITE,URINE NEGATIVE (NEGATIVE); PROTEIN,URINE DIPSTICK NEGATIVE (NEGATIVE); URINE UROBILINOGEN 1 mg/dL (0.2 - 1)
[2019-09-12 22:46] LABS: BACTERIA,URINE MODERATE /HPF; EPITHELIAL CELLS,URINE FEW /LPF; RBC,URINE 0-5 /HPF (0-5)
--- NOTE | 2019-09-13 06:57 | Diagnostic Imaging Report ---
First trimester OB ultrasound History: Vaginal bleeding, positive test, last menstrual period 07-01-2019. Findings: There is a single live intrauterine . A gestational sac, yolk sac, and pole are identified. The crown-rump length is 3.68 cm, with an estimated gestational age of 10 weeks, 5 days. The heart rate is 1 51 bpm. Gestational sac measures 5.15 cm, with an estimated gestational age of 11 weeks, 1 day. The yolk sac measures 0.44 cm. Adjacent to the gestational sac, there is a heterogeneous area likely within the left aspect of the uterus, measuring up to 5.3 x 3.3 x 2.1 cm. If this is not within the uterus, this could represent a bowel loop, although felt to be less likely. The uterus measures 7.4 x 6 x 8.3 cm. The right ovary is not visualized. The left ovary measures 2.4 x 1.2 x 2.1 cm. No evidence of free fluid. IMPRESSION: Single live intrauterine , with an estimated gestational age of 10 weeks, 5 days. Suspected subchorionic hematoma measuring up to 5.3 cm in the left aspect of the uterus. Recommend clinical follow-up and follow-up pelvic ultrasound. The right ovary is not visualized. Unremarkable sonographic appearance of the left ovary. The above findings were discussed with Dr. Suttno on 09/13/2019 at approximately 2:00 AM. Due to technical difficulties with the temperature regulator pyrometer, the dictation was not able to be signed at that time. Signed by: Dr. Alexys Prabhakar MD on 09/13/2019 7:01 AM
== END 2019-09-13 02:21 | disposition home or self-care (01) ==
LOC: ER 21:31
DX: O20.9 Hemorrhage in early pregnancy, unspecified (principal); O20.0 Threatened abortion; O23.41 Unspecified infection of urinary tract in pregnancy, first trimester
CPT/HCPCS: 36415; 76801; 81001; 84702; 99284